=== PATIENT | female | born 1990 | race Caucasian/White ===

== ENCOUNTER 2024-05-05 13:58 | Emergency (ER) | payer MEDICAID, SELFPAY ==
[2024-05-05 14:22] VITALS: BP 121/79; PULSE 88; RESP 16; TEMP 36.7; O2SAT 99; BMI 34.8
[2024-05-05 15:36] LABS: Basophils % 0.3 %; Eosinophils # 0.1 10^3/uL (0.0-0.8); Hematocrit 38.3 % (36-47); Lymphocytes # 2.9 10^3/uL (0.8-4.8); Lymphocytes % 27.7 %; Mean Corpuscular HGB Conc 31.3 g/dL (30-55); Mean Corpuscular Hemoglobin 26.7 pg (27-33); Mean Corpuscular Volume 85.3 fl (85-98); Mean Platelet Volume 9.3 fL (7.4-10.4); Monocytes # 0.6 10^3/uL (0.2-0.9); Monocytes % 5.4 %; Neutrophils # 6.82 10^3/uL (1.8-7.7); Nucleated Red Blood Cells % 0 %; Platelet Count 395 10^3/cmm (157-399); Red Blood Count 4.49 10^6/uL (3.85-5.65); Red Cell Distribution Width 17.1 % (12.1-15.1); White Blood Count 10.48 10^3/uL (3.29-11.43)
--- NOTE | 2024-05-05 16:15 | USR_ITS ---
PROCEDURE INFORMATION: Exam: US First Trimester, Transabdominal and US , Transvaginal Exam date and time: 05/05/2024 4:39 PM Age: 33 years old Clinical indication: Lmp or gestational age (in weeks): 6; Antepartum complications; ; Patient HX: Slight vag bleeding; Additional info: Vaginal bleeding, hcg 6000 LABS AND CLINICAL REPORTS: Choriogonadotropin in serum (Serum HCG): 6000 mIU/mL Last menstrual period start date: 03/01/2024 Gestational age (Established): 9 w 2 d Estimated due date (Established): 12/06/2024 TECHNIQUE: Imaging protocol: Real-time transabdominal obstetrical ultrasound of the maternal pelvis and a first trimester , less than 14 weeks 0 days, with image documentation. Transvaginal imaging was used for better evaluation of the fetus, adnexa, and/or cervix. COMPARISON: No relevant prior studies available. FINDINGS: GESTATION: Gestation: No pole is visualized. There is an intrauterine gestational sac. A yolk sac is visualized but a pole is not seen. The yolk sac measures 4.6 mm. Gestational sac measurements suggests a 6 week and 2 day . Embryonic/ heart rate: pole not visualized. Extra-embryonic membranes/Placenta: There is a subchorionic hemorrhage measuring about 8 mm in thickness and about 2.5 cm in width. Amniotic/Chorionic fluid: N/A BIOMETRY: Gestational age (AUA): N/A Mean sac diameter: 1.36 cm. EGA (MSD) is 6w 2d MATERNAL: Uterus: Unremarkable. Cervix: Unremarkable. Endocervical canal is closed. Vagina: The patient declined the endovaginal portion of the exam. Right ovary/adnexa: Grossly normal on transabdominal imaging with blood flow demonstrated. Left ovary/adnexa: Grossly normal on transabdominal imaging blood flow demonstrated. Intraperitoneal space: No intraperitoneal free fluid. US/US OB <= 14 weeks fetus [id number] IMPRESSION: 1. There is an intrauterine gestational sac with yolk sac. The gestational sac measures 6 weeks and 2 days. 2. No visible pole. Consider early versus nonviable . Short-term follow-up ultrasound and correlation with serial quantitative beta HCG is recommended. 3. Subchorionic hemorrhage measuring 8 mm in thickness and 2.5 cm in width. 4. The patient declined the endovaginal portion of the exam at this time.
--- NOTE | 2024-05-05 16:17 | ED_ITS ---
HPI - 2 General: Chief complaint: Vaginal Bleeding Stated complaint: 7 weeks preg, bleeding Time Seen by Provider: 05/05/24 16:15 History of Present Illness: 33-year-old female comes in today with l ight bleeding starting this afternoon. Patient reports that she is approximately 7 to 8 weeks . Patient appears nontoxic. Patient reports that most of her bleeding is noted when she wipes after urination. Patient is 1 para 0. Patient has been seen at a resource center that noted that she was 6 weeks on ultrasound last week. Review of Systems 2 General: Reports: 10 or more systems reviewed and unremarkable except in HPI and below Physical Exam 2 Const: COMMON NORMALS: alert HENMT: COMMON NORMALS: normocephalic HEAD & SCALP: normocephalic Neck/C-Spine: COMMON NORMALS: full ROM Resp: COMMON NORMALS: normal respiratory effort Cardio: COMMON NORMALS: regular rate and regular rhythm RATE: regular rate RHYTHM: regular rhythm GI: COMMON NORMALS: non-tender Back/Pelvis: COMMON NORMALS: thoracic and lumbar spine normal to inspection Extremity: COMMON NORMALS: full ROM Neuro: SENSORIUM/ORIENTATION: Yes alert Skin: COMMON NORMALS: turgor normal GENERAL SKIN EXAM: turgor normal Course 2 Vital Signs: Vital signs: Vital Signs Temperature 98.1 F 05/05/24 14:22 Pulse Rate 79 05/05/24 16:34 Respiratory Rate 16 05/05/24 14:22 Blood Pressure 115/77 05/05/24 16:34 Pulse Oximetry 100 05/05/24 16:34 Oxygen Delivery Me thod Room Air 05/05/24 16:34 MDM - OB/Uterine Contractions Medical Decision Making 33-year-old female comes in today for concerns of vaginal bleeding in the first trimester . On exam patient appears nontoxic. Patient mainly when she wipes. Vital signs are normal. Patient does use nicotine. Differential diagnosis threatened , incomplete miscarriage, UTI, subchorionic hemorrhage. Ultrasound noted a small subchorionic hemorrhage and early at 6 weeks 2 days. hCG is 6000. CBC CMP is unremarkable. Urinalysis unremarkable. Reviewed exam with patient with recommendations for recheck of hCG level in 2 to 3 days. Patient can return here or follow-up with primary care. Patient reports understanding of plan and need for follow-up or return to the ER for worsening symptoms. Lab Data 05/05/24 15:03 Radiology Impressions Ultrasound 05/05/24 16:15 IMPRESSION: 1. There is an intrauterine gestational sac with yolk sac. The gestational sac measures 6 weeks and 2 days. 2. No visible pole. Consider early versus nonviable . Short-term follow-up ultrasound and correlation with serial quantitative beta HCG is recommended. 3. Subchorionic hemorrhage measuring 8 mm in thickness and 2.5 cm in width. 4. The patient declined the endovaginal portion of the exam at this time. Laboratory Results WBC 10.48 10^3/uL (3.29-11.43) 05/05/24 15:03 RBC 4.49 10^6/uL (3.85-5.65) 05/05/24 15:03 Hgb 12.00 g/dL (11.27-16.99) 05/05/24 15:03 Hct 38.3 % (36-47) 05/05/24 15:03 MCV 85.3 fl (85-98) 05/05/24 15:03 MCH 26.7 pg (27-33) L 05/05/24 15:03 MCHC 31.3 g/dL (30-55) 05/05/24 15:03 RDW 17.1 % (12.1-15.1) H 05/05/24 15:03 Plt Count 395 10^3/cmm (157-399) 05/05/24 15:03 MPV 9.3 fL (7.4-10.4) 05/05/24 15:03 Neut % (Auto) 65.0 % 05/05/24 15:03 Lymph % (Auto) 27.7 % 05/05/24 15:03 [place] % (Auto) 5.4 % 05/05/24 15:03 Eos % (Auto) 1.0 % 05/05/24 15:03 Baso % (Auto) 0.3 % 05/05/24 15:03 Neut # (Auto) 6.82 10^3/uL (1.8-7.7) 05/05/24 15:03 Lymph # (Auto) 2.9 10^3/uL (0.8-4.8) 05/05/24 15:03 Winn # (Auto) 0.6 10^3/uL (0.2-0.9) 05/05/24 15:03 Eos # (Auto) 0.1 10^3/uL (0.0-0.8) 05/05/24 15:03 Baso # (Auto) 0.0 10^3/uL (0.0-0.1) 05/05/24 15:03 Nucleated RBC % (auto) 0 % 05/05/24 15:03 Nucleated RBCs # 0.0 /100WBC 05/05/24 15:03 Ser , Semi-Qnt 6039.00 mIU/mL 05/05/24 15:03 Urine Color Yellow (Yellow) 05/05/24 14:38 Urine Appearance Clear (CLEAR) 05/05/24 14:38 Urine pH 5 (5-7) 05/05/24 14:38 Ur Specific [place] 1.010 (1.005-1.030) 05/05/24 14:38 Urine Protein Neg (Negative) 05/05/24 14:38 Urine Glucose (UA) Norm (Normal) 05/05/24 14:38 Urine Ketones Negative (Negative) 05/05/24 14:38 Urine Blood 3+ (Negative) H 05/05/24 14:38 Urine Nitrate Negative (Negative) 05/05/24 14:38 Urine Bilirubin Neg (Negative) 05/05/24 14:38 Urine Urobilinogen Norm mg/dL (Negative) 05/05/24 14:38 Ur Leukocyte Esterase Negative (Negative) 05/05/24 14:38 Urine RBC 0-4 /hpf (0-2) H 05/05/24 14:38 Urine WBC Rare /hpf (0-5) 05/05/24 14:38 Ur Squamous Epith Cells 0-4 /hpf (0-5) H 05/05/24 14:38 Amorphous Sediment Not Reportable 05/05/24 14:38 Urine Bacteria Trace /hpf (NONE) 05/05/24 14:38 Urine Mucus None /hpf 05/05/24 14:38 Blood Type A Positive 05/05/24 15:03 Rho(D) Type Rh positive 05/05/24 15:03 All radiology interpretation(s) finalized by discharge Discharge Plan Discharge Patient Disposition: Home Clinical Impression: Antepartum bleeding, first trimester Subchorionic hematoma in first trimester Qualifiers: Fetus number: single or unspecified fetus Qualified Code(s): O41.8X10 - Other specified disorders of amniotic fluid and membranes, first trimester, not applicable or unspecified Condition: Stable Discharge Orders: Discharge ED (Routine); Ordered 05/05/24 Ordered By: Vasyl Cedeno Discharge Diet: Usual diet Discharge Activity: Increase activity as tolerated Patient Instructions: Subchorionic Hemorrhage (ED) Activity Restrictions/Additional Instructions: Drink plenty of water and fluids. Pelvic rest until follow-up with [employer]. No heavy lifting. Return to ER for worsening symptoms such as fever greater than 100.4, bleeding saturating more than 1 pad an hour, or new concerns. Coding Level of Care Code [employer] Delivery Consultant for Dipesh Mohamud
[2024-05-05 16:34] VITALS: BP 115/77; PULSE 79; O2SAT 100
[2024-05-05 17:11] LABS: Add Urine Microscopic? YES; Bilirubin Urine Neg (Negative); Blood Urine 3+ (Negative); Glucose Urine UA Norm (Normal); Ketones Urine Negative (Negative); Leukocyte Esterase Urine Negative (Negative); Nitrate Urine Negative (Negative); Protein Urine Neg (Negative); Urine Appearance Clear (CLEAR); Urine Color Yellow (Yellow); Urobilinogen Urine Norm (Negative); pH Urine 5 (5-7)
[2024-05-05 17:43] LABS: Add Urine Culture? No; Bacteria Urine TRACE /hpf; RBC Urine 0-4 /hpf (0-2); Squamous Epithelial Cell Urine 0-4 /hpf (0-5); WBC Urine RARE /hpf (0-5)
[2024-05-05 18:15] VITALS: BP 115/77; PULSE 79; RESP 16; TEMP 36.7; O2SAT 100
== END 2024-05-05 18:15 | disposition home or self-care (01) ==
PROVIDERS: Emergency Medicine; Emergency Provider Nurse Practitioner Family
DX: O41.8X10 Other specified disorders of amniotic fluid and membranes, first trimester, not applicable or unspecified (principal); O46.91 Antepartum hemorrhage, unspecified, first trimester; Z3A.01 Less than 8 weeks gestation of pregnancy
CPT/HCPCS: 36415; 76801; 81001; 84702; 85025; 86900; 99284

== ENCOUNTER 2024-05-08 13:45 | Emergency (ER) | payer MEDICAID, SELFPAY ==
[2024-05-08 13:48] VITALS: BP 119/72; PULSE 114; RESP 16; TEMP 36.7; O2SAT 99
--- NOTE | 2024-05-08 14:21 | W.ED.RECABL ---
HPI - Recheck/Abnormal Lab/Rx General: Chief Complaint: Recheck/Abnormal Lab/Rx Stated Complaint: coming back for labs recheck Time Seen by Provider: 05/08/24 14:03 History of Present Illness: Patient was seen 2 to 3 days earlier for threatened . Patient was noted to have a subchorionic hemorrhage and recommended to come back in 2 to 3 days for repeat hCG. Patient appears nontoxic. Patient does report some mild bleeding. Review of Systems General: Reports: 10 or more systems reviewed and unremarkable except in HPI and below Physical Exam Const: COMMON NORMALS: alert HENMT: COMMON NORMALS: normocephalic HEAD & SCALP: normocephalic Neck/C-Spine: COMMON NORMALS: full ROM Resp: COMMON NORMALS: normal respiratory effort Cardio: COMMON NORMALS: regular rate RATE: regular rate : COMMON NORMALS: Yes no CVA tenderness BLADDER/KIDNEY EXAM: Yes no CVA tenderness Back/Pelvis: COMMON NORMALS: no CVA tenderness Extremity: COMMON NORMALS: normal to inspection Neuro: SENSORIUM/ORIENTATION: Yes alert Skin: COMMON NORMALS: turgor normal GENERAL SKIN EXAM: turgor normal Course Vital Signs: Vital signs: Vital Signs Temperature 98.0 F 05/08/24 13:48 Pulse Rate 114 H 05/08/24 13:48 Respiratory Rate 16 05/08/24 13:48 Blood Pressure 119/72 05/08/24 13:48 Pulse Oximetry 99 05/08/24 13:48 Oxygen Delivery Me thod Room Air 05/08/24 13:48 MDM - Recheck/Abnormal Lab/Rx Medical Decision Making 33-year-old female comes in today for complaints of vaginal bleeding and needing recheck of hCG level. Patient was seen 2 to 3 days ago and was diagnosed with a threatened . Patient was recommended to have hCG level rechecked in 2 to 3 days. Differential diagnosis includes not limited to spontaneous , threatened miscarriage, subchorionic hemorrhage. hCG has declined from 6729. Most likely this is sign of a miscarriage which was reviewed with patient with recommendations for follow-up and recommendations to return for worsening symptoms. Patient reported understanding agreed to plan. Lab Data Laboratory Results Ser , Semi-Qnt 729.40 mIU/mL 05/08/24 14:15 No radiology studies performed this visit Discharge Plan Discharge Patient Disposition: Home Clinical Impression: Spontaneous miscarriage Condition: Stable Discharge Orders: Discharge ED (Routine); Ordered 05/08/24 Ordered By: Vasyl Cedeno Discharge Diet: Usual diet Discharge Activity: Increase activity as tolerated Patient Instructions: Miscarriage (ED) Activity Restrictions/Additional Instructions: Home and rest. Drink plenty water and fluids. You are expected to have bleeding may be a little heavier than a normal menstrual cycle. Follow-up with primary care in 2 to 5 days for recheck. Return to ED for worsening symptoms such as bleeding greater than 1 pad an hour where the pad is saturated, fever greater than 100.4, or uncontrolled pain. Coding Level of Care Code [facility] [employer]ing Machine Operator for Dipesh Mohamud
== END 2024-05-08 14:57 | disposition home or self-care (01) ==
PROVIDERS: Emergency Provider Nurse Practitioner Family
DX: O03.9 Complete or unspecified spontaneous abortion without complication (principal)
CPT/HCPCS: 36415; 84702; 99283